=== PATIENT | female | born 1990 | race Caucasian/White ===

== ENCOUNTER 2024-06-25 16:47 | Emergency (ER) | payer OTHER, BC ==
[2024-06-25] VITALS (8 sets, daily range): BP systolic 87–118; BP diastolic 54–75
[~2024-06-25] VITALS: Ht 162.6 cm; Wt 68.0 kg
[2024-06-25] MEDS ORDERED: IBUPROFEN 600 MG/TAB PO ONE (16:50)
[2024-06-25] MEDS ORDERED: METHOCARBAMOL500 MG PO (19:18)
== END 2024-06-25 19:29 | disposition home or self-care (01) | DRG 605 ==
LOC: ED 16:47
DX: S50.811A Abrasion of right forearm, initial encounter (principal); S16.1XXA Strain of muscle, fascia and tendon at neck level, initial encounter; S39.012A Strain of muscle, fascia and tendon of lower back, initial encounter; V43.52XA Car driver injured in collision with other type car in traffic accident, initial encounter